=== PATIENT | male | born 1980 | race Caucasian/White ===

== ENCOUNTER 2017-03-29 11:37 | Emergency (ER) | payer SELFPAY ==
[~2017-03-29] VITALS: Ht 177.8 cm; Wt 64.8 kg
[~2017-03-29 11:37] MED LIST: IMIQ1CRE5 TOP
[2017-03-29 11:39] VITALS: BP 134/81; PULSE 88; TEMP 36.5; O2SAT 99; Ht 177.8 cm; Wt 64.8 kg
[2017-03-29] MEDS ORDERED: DIPHTHERIA/TETANUS/PERTUSSIS 0.5 ML SYR/VIAL IM. ONE (13:00)
--- NOTE | 2017-03-29 13:17 | EMERGENCY ROOM VISIT NOTE ---
ED Visit Note First contact with patient: 11:59 CHIEF COMPLAINT: Eye pain and facial lacerations or HISTORY OF PRESENT ILLNESS: This 36-year-old male patient presents to the emergency department by private vehicle complaining of pain in the right eye and face. Patient states he was cutting down tree limbs and his friend's backyard, when one of the tree limb struck him on the right side of his face. He states the limb was approximately 3 inches in diameter. He denies loss of consciousness, headache, neck pain. He does have a laceration of his right forehead and right upper lip, and swelling/bruising around his right eye. There has been a constant mild pain and irritation, redness and tearing in the eye. There is a mild blurring of vision at times and light bothers the eye. The vision has not been decreased over all. The patient does not wear contacts. The patient rates the pain as burning and to/10. The patient has not had previous injuries to this eye. Tetanus shot is not up to date. REVIEW OF SYSTEMS: A 6 system review of systems was completed with positives and pertinent negatives listed in the HPI. ALLERGIES: No known allergies MEDICATIONS: Patient denies any prescription medications PMH: No significant past medical history SOCIAL HISTORY: Patient lives at home. He is a 2 pack per day smoker, he denies alcohol and recreational drug use. PHYSICAL EXAM: Vital Signs: Reviewed Nurse's notes, vital signs stable. Visual acuity left eye 20/30, right eye 20/70. GENERAL: This is a pleasant gentleman, in no acute distress, but who is uncomfortable from the eye problem. Well- developed well-nourished. EYES: The left pupil is 3 mm, round, briskly reactive to light. The right pupil is 3 mm, irregular and oval-shaped, and minimally reactive to light and accommodation. EOMs intact. There is discharge of clear tears from the right eye which is injected. There is no foreign body visible under the eyelid even after lid eversion. No foreign body was seen embedded in the cornea under slit lamp exam. There is a hyphema seen in the right eye, approximately 20%. Fluorescein staining was performed and the eye was examined under slit lamp, no fluorescein uptake was observed with ultraviolet light significant for a corneal abrasion or deeper corneal laceration. SKIN: There is a 1 cm long laceration noted on the right upper lip. It does not go through the vermilion border and it is not through and through to the oral mucosa. It is superficial and the edges do not gape apart with traction. There is no foreign material in the wound and it looks clean. There is no active bleeding. No deep structures such as tendons or nerves are seen in the base of the wound. There is a 1 cm long laceration noted to the right forehead, full-thickness and the edges do gape apart with traction. There is no foreign material in the wound and it looks clean. There is mild bleeding actively. No deep structures such as tendons or nerves are seen in the base of the wound, the galea appears to be intact with no exposed skull. EMERGENCY DEPARTMENT COURSE: I examined the patient. Differential diagnosis includes corneal abrasion, corneal foreign body, open globe, facial laceration, contusion, abrasion, among others. The patient was offered medication for pain , he declines this. A slit lamp exam was performed as above, there was no fluorescein uptake to indicate a corneal abrasion or laceration concerning for an open globe injury, however the presence of hyphema with poorly reactive pupil was concerning, therefore ophthalmology was consulted. I did speak on the phone with Dr Wu, who agreed that this was most likely not an open globe fracture, and he stated that he is happy to see the patient for follow-up in his clinic this afternoon. Verbal consent was obtained to perform the laceration repair procedure. The laceration on the right forehead was cleaned with betadine and sterile saline and there was no bleeding. The patient was offered local anesthetic, he declined this and stated "just get it over with." A single subcuticular suture was placed with 5-0 Vicryl suture, with good hemostasis and wound edge approximation. The edges of the laceration were further approximated and secured with 3 layers of Dermabond glue with good wound approximation. The patient tolerated the procedure well. The patient was given a tetanus booster. The patient was discharged in stable condition, with instructions to follow up with ophthalmology this afternoon. The patient was discussed, seen and evaluated by Dr. Griffin, who agrees with my assessment and plan. Current/Historical Medications No Active Prescriptions or Reported Meds Allergies Coded Allergies: No Known Allergies (Verified , 03/29/17) Uncoded Allergies: NKDA (Allergy, Unknown, 08/14/02) Vital Signs Date Time Temp Pulse Resp B/P (MAP) Pulse Ox O2 Delivery O2 Flow Rate FiO2 03/29/17 11:39 36.5 88 18 134/81 99 Room Air Medications Administered Medications (Trade) Dose Ordered Sig/Maria Victoria Route Start Time Stop Time Status Last Admin Dose Admin Diphtheria/ Pertussis/Tetanus Vacc (Adacel Inj) 0.5 ml ONCE ONCE IM. 03/29/17 13:00 03/29/17 13:01 DC 03/29/17 13:12 0.5 ML Departure Information Impression Primary Impression: Hyphema, right eye Additional Impression: Facial laceration Dispostion Home / Self-Care Condition GOOD Prescriptions No Active Prescriptions or Reported Meds Referrals No Doctor, Assigned (PCP) Thomas Wu M.D. Patient Instructions ED Eye Injury Hyphema, ED Laceration Facial Skin Glue, [facility] Additional Instructions Follow-up this afternoon with Dr. Wu at the ophthalmology clinic. Call ahead to establish an appointment time. They are expecting to hear from you. Your visual acuity in the ED was left eye 20/30, right eye 20/70. Please share this information with your cvicu nurse at your visit. Skin glue on your facial laceration should follow off on its own in the next 5- 7 days. Do not scrub the wound or apply any soaps or ointment to the glued area , as this can cause the glue to dissolve and follow-up early. Keep your other wounds clean and dry. Do not allow any crusting or dried blood to accumulate on sutures. If this occurs, use a 1:1 solution of hydrogen peroxide/water on a Q-tip to clean the wound. Use an antibiotic ointment to the abrasion above your lip for 3-4 days, then let wound dry. Ice and elevate for swelling and pain. Ibuprofen 600 mg and Tylenol 1000 mg every 6-8 hrs as needed for pain. Do not take more than 3000 mg of Tylenol or 2400 mg of ibuprofen in 24 hours. Keep covered when in sun until sutures removed then SPF 50 or higher for one year. Vitamin E oil if desired two weeks after suture removal for reduction of scar. Please seek immediate medical attention for any signs of infection (increasing redness, swelling, pus drainage, streaking up the arm, fever/chills). Problem Qualifiers Additional Impression: Facial laceration Encounter type: initial encounter Qualified Codes: S01.81XA - Laceration without foreign body of other part of head, initial encounter
== END 2017-03-29 13:30 | disposition home or self-care (01) ==
LOC: C.EDB 11:38 → C.EDD 13:30
DX: S05.11XA Contusion of eyeball and orbital tissues, right eye, initial encounter (principal); S01.81XA Laceration without foreign body of other part of head, initial encounter; S01.511A Laceration without foreign body of lip, initial encounter; Z23 Encounter for immunization; W20.8XXA Other cause of strike by thrown, projected or falling object, initial encounter; F17.200 Nicotine dependence, unspecified, uncomplicated

== ENCOUNTER 2020-06-26 13:55 | Observation (INO) ==
--- OUTSIDE RECORDS SUMMARY | 2020-06-26 13:57 | External Medical Summary | Continuity of Care Document ---
:1980 Author Name Zoe Powell, Provider Address Unavailable Unavailable , Care Team Providers Name Role Phone Armond Armenta M.D., I. Unavailable [email or web address], NO Unavailable Unavailable Unavailable Unavailable Unavailable Problems Condyloma acuminatum (078.11) (A63.0) Allergies and Adverse Reactions No Known Drug Allergies (Allergy) Medications No Reported Medications Refills: 0 Procedures Procedures not documented Immunizations Immunizations not documented Social History - Smoking Status Smokes tobacco daily Plan of Treatment Planned Observations Planned Goals not documented Results No Known Results Results not documented Encounters Appointment; Armond Armenta M.D. 22-Aug-2016 10:15 Encounter Diagnosis: Problem not documented
--- OUTSIDE RECORDS SUMMARY | 2020-06-26 13:58 | External Medical Summary | Continuity of Care Document ---
:1980 Author Name Zoe Powell, Provider Address Unavailable Unavailable , Care Team Providers Name Role Phone Armond Armenta M.D., I. Unavailable [email or web address] [email or web address], NO Unavailable Unavailable Unavailable Unavailable [...]
[2020-06-26] MEDS ORDERED: KETOROLAC TROMETHAMINE 15 MG/ML VIAL IV STA (14:47)
[2020-06-26] MEDS ORDERED: SODIUM CHLORIDE 0.9% 1000ML 1,000 ML IV ONE (14:47)
--- NOTE | 2020-06-26 15:09 | Emergency Department Note ---
Impression & Plan Abscess of buttock, right, Acute left flank pain, Cough, Left rib fracture ED Provider Note Provider: Dilsahd Hussein MD DATE OF SERVICE:06/26/2020 CHIEF COMPLAINT: Abscess, flank pain HISTORY OF PRESENT ILLNESS: Patient is a 39-year-old gentleman distant history of IV drug abuse recently injecting steroids in his right buttock presenting today complaining of an abscess on his right buttock as well as developing overnight some left flank pain. Patient states he lifts weights frequently and about 2 weeks ago he injected steroids in his right butt cheek. States it began to feel a bit irritated and painful and began to swell. This led him on 2 days ago to present to [facility] for evaluation and imaging there showed a large 10 cm fluid collection of the right buttock. Patient states he was going to be transferred to [place] but due to bed availability he stayed for most of at the ER in [place]. Patient states he got frustrated and left AMA yesterday evening. Went home use marijuana last night. States this caused him to cough little bit any cough throughout the night. Patient complained of onset of some left flank pain at this point but denies anterior chest pain. Does not state that he is not short of breath but states if he takes deep breath he cannot because it hurts in his left flank. Denies nausea vomiting or abdominal pain. Denies stooling issues. Denies pain down his legs or numbness or tingling in the lower extremities. Patient denies trauma. He denies fever that he is aware of but the pain in his flank is hurting. Patient states he does have a history of IV drug abuse several years ago. Evidently there was significant difficulty obtaining IV access at the other facility and he does not believe he received antibiotics. Does not currently have a primary doctor. Patient denies a history of surgical drainage of abscesses. History of MRSA reported. Denies nausea or vomiting. REVIEW OF SYSTEMS: A total of 10 review of systems was obtained and negative except as stated above in the HPI. PAST MEDICAL HISTORY: As noted above MEDICATIONS: Denies current prescribed medications. SOCIAL HISTORY: Smoker, uses marijuana PHYSICAL EXAM: GENERAL: alert and oriented standing in room appears uncomfortable pacing Head: normocephalic and atraumatic EYES: No injection, discharge or icterus. NECK: Trachea midline. ENT: Mucous membranes pink and moist. LUNGS: Airway patent. No retractions. Breath sounds clear HEART: Regular rate and rhythm. No chest wall tenderness ABDOMEN: Soft and non-tender, without guarding or rebound. BACK: No midline tenderness, no SI joint tenderness. No bilateral flank tenderness even over reported area left flank pain. SKIN: Acyanotic, warm, dry. There is some scattered folliculitis spots over his back as well as what appear to be prior scarring from small follicular abscesses here. Patient has a large 12 x 14 cm area of firmness over the right buttock predominantly superior lateral without crepitus and without significant overlying erythema. Does have tenderness in this area. EXTREMITIES: Without swelling, tenderness or deformity NEUROLOGICAL: No focal deficits. No aphasia. No facial droop or slurred speech. Normal strength and tone in the extremities. Sensation to gross touch normal. Ambulatory. EKG: Sinus tachycardia 107 bpm. No PVC or PAC. No acute ST segment elevation or depression noted. Rightward axis is noted. Compared to previous film from October [id number] doubt more tachycardic with right axis CONTINUOUS CARDIAC MONITORING: was ordered and showed a heart rate of 100's to 80's bpm in initially sinus tachycardia then normal sinus rhythm PDMP was checked without noted issue. Patient's laboratory studies and imaging reviewed. Differential includes Appendicitis, infections, diverticulitis, UTI, obstruction, mesenteric ischemia, aortic pathology, inflammatory bowel disease, renal colic, PUD, pancreatitis, biliary pathology, hernia, volvulus, constipation, abscess, PE, ACS, rib fracture, pleurisy, musculoskeletal flank pain as well as other pathologies. IMPRESSION/MEDICAL DECISION MAKING: Patient presents with 2 primary complaints. Has a very obvious right buttock collection on exam but no clear head or significant erythema or crepitus appreciated here. Patient is tachycardic but not febrile upon arrival. Is in significant discomfort from this and flank pain. Reviewed imaging from outside facility and given its been almost [address] was obtained of the abdomen pelvis to evaluate for change of this large what appears to be abscess. Patient not having bowel or bladder dysfunction he reports. Not having numbness or weakness in lower extremities. Doubt spinal cord impingement at this point. Given the significant size likely will need IV antibiotics and surgical consultation. Completion of left flank pain is of unclear etiology. Does complain bit of a cough and while no significant trauma is been reported wonder if the coughing is causing some musculoskeletal or possible bony injury here. CT of the chest were completed evaluate for this as well as possible underlying pneumonia, pulmonary embolism, or other pathology here. Seems less likely to be nephrolithiasis. Benign anterior abdomen otherwise and doubt significant intra-abdominal complication such as peritonitis, perforation, or diverticulitis. Labs to evaluate for possible pancreatitis were sent but patient denies nausea or vomiting and this seems somewhat atypical for this presentation. Laboratory studies do returned with a significant leukocytosis of 18 with borderline anemia. Sodium 130. No other significant electrolyte abnormality. Renal function 1.18. EKG without significant ischemic findings. Mild transa minitis of 87/85 noted with a negative troponin. Does not think is a with hepatitis. Doubt this is ACS given these findings. Lipase is low at 41 and I doubt pancreatitis. Unclear etiology of the AST ALT elevation but minimal. Bilirubins not elevated doubt obstructive pathology with this. Covid test here was negative. Given his tachycardia large apparent abscess and leukocytosis empirically given a dose of Zosyn and daptomycin discussed with pharmacy for broad-spectrum coverage including MRSA coverage. CT scan of the chest and abdomen pelvis shows no evidence of PE likely likely his symptoms are related to a left night rib fracture. Given that he denies trauma this could very well be from a significant cough. CT abdomen pelvis shows an 11 x 6.1 cm rim-enhancing fluid collection suggestive of an abscess with some smaller ring-enhancing fluid collections nearby in the gluteus gerald. Given the significant size of this as well as leukocytosis discussed with general surgery. Dr. Orlando came and evaluated the patient to the emergency department took the ER for further care. DIAGNOSIS: Right buttock abscess, left flank pain, left posterior ninth rib fracture DISPOSITION: Taken to the OR by surgery for further care. Past Med/Surg History Social History Smoking Status: Current every day smoker Hx Substance Use: Yes Feels Safe at Home: Yes Allergies Allergies Allergy/AdvReac Type Severity Reaction Status Date / Time No Known Allergies Allergy Verified 06/26/20 15:28 [id number] Allergy Unknown Unknown Uncoded 06/26/20 15:28 Home Meds Home Medications Medication Instructions Recorded Confirmed No Known Home Medications 06/26/20 06/26/20 Results & Data (ED) Vital Signs Vital Signs - 24 hr 06/26/20 13:59 06/26/20 14:25 06/26/20 16:00 Temperature 37.4 C Temperature Source Oral Pulse Rate 128 H Pulse Rate [Apical] 85 Respiratory Rate 20 18 Respiratory Depth Normal Blood Pressure 108/54 L Blood Pressure [Left Arm] 128/77 Blood Pressure Mean 72 Blood Pressure Mean [Left Arm] 94 Pulse Oximetry 99 98 Oxygen Delivery Method Room Air Sepsis Recent Fever Within 48 Hours No Sepsis New/Unexplained Change in Mental Status N/A Sepsis Action Taken by Nursing No Action Required Laboratory Data Result diagrams: 06/26/20 15:06 06/26/20 15:06 Lab Results 06/26/20 06/26/20 06/26/20 Range/Units 15:06 15:06 15:06 WBC 18.81 H (4.8-10.8) K/uL RBC 5.05 (4.7-6.1) M/uL Hgb 13.4 L (14.0-18.0) g/dL POC Hgb (14.0-18.0) g/dl Hct 38.8 L (42-52) % POC Hct (42-52) % MCV 76.8 L (80-100) fL MCH 26.5 (25-34) pg MCHC 34.5 (32-36) g/dL RDW Std Deviation 44.7 (36.4-46.3) fL RDW Coeff of Matthew 16.1 H (11.5-14.5) % Plt Count 572 H (130-400) K/uL MPV 10.0 (7.4-10.4) fL Neutrophils % (Manual) 67.5 % Lymphocytes % (Manual) 11.4 % Monocytes % (Manual) 7.9 % Eosinophils % (Manual) 0.9 % Metamyelocytes % (Man) 7.9 % Myelocytes % (Man) 4.4 % Neutrophils # (Manual) 12.70 H (1.4-6.5) K/uL Total Absolute Neuts 12.70 H (1.4-6.5) K/uL Lymphocytes # (Manual) 2.14 (1.2-3.4) K/uL Total Abs Lymphocytes 2.14 (1.2-3.4) K/uL Monocytes # (Manual) 1.49 H (0.11-0.59) K/uL Eosinophils # (Manual) 0.17 (0-0.5) K/uL Metamyelocytes # (Man) 1.49 H (0-0) K/uL Myelocytes # (Manual) 0.83 H (0-0) K/uL Giant Platelets 1+ Hypochromasia Present POC Sodium (135-144) mmol/L Sodium 130 L (136-145) mmol/L POC Potassium (3.3-5.0) mmol/L Potassium 4.2 (3.5-5.1) mmol/L POC Chloride (101-112) mmol/L Chloride 98 (98-107) mmol/L Carbon Dioxide 27 (21-32) mmol/L POC Total CO2 (24-31) mmol/L Anion Gap 5.0 (3-11) POC Anion Gap (16-25) mmol/L POC BUN (7-18) mg/dl BUN 15 (7-18) mg/dl Creatinine 1.18 (0.6-1.4) mg/dl POC Creatinine (0.6-1.3) mg/dl Est Cr Clr Drug Dosing 87.6 ml/min Est GFR ( Amer) 90.2 Est GFR (Non-Af Amer) 77.8 BUN/Creatinine Ratio 12.5 (10-20) Glucose 103 H (70-99) mg/dl POC Glucose (other) (70-99) mg/dl Lactate 1.1 (0.4-2.0) mmol/L Calcium 8.7 (8.5-10.1) mg/dl POC Ioniz Calcium [place] (1.12-1.32) mmol/l Magnesium 2.2 (1.8-2.4) mg/dl Total Bilirubin 0.5 (0.2-1) mg/dl AST 87 H (15-37) U/L ALT 85 H (12-78) U/L Alkaline Phosphatase 100 (45-117) U/L Troponin I < 0.015 (0-0.045) ng/ml Total Protein 7.4 (6.4-8.2) gm/dl Albumin 2.9 L (3.4-5.0) gm/dl Globulin 4.5 H (2.5-4.0) gm/dl Albumin/Globulin Ratio 0.6 L (0.9-2) Lipase 41 L (73-393) U/L COVID-19 Eval Order SARS-CoV-2, RNA, NAAT (NEGATIVE) 06/26/20 06/26/20 06/26/20 Range/Units 15:22 15:30 15:30 WBC (4.8-10.8) K/uL RBC (4.7-6.1) M/uL Hgb (14.0-18.0) g/dL POC Hgb 14.3 (14.0-18.0) g/dl Hct (42-52) % POC Hct 42 (42-52) % MCV (80-100) fL MCH (25-34) pg MCHC (32-36) g/dL RDW Std Deviation (36.4-46.3) fL RDW Coeff of Matthew (11.5-14.5) % Plt Count (130-400) K/uL MPV (7.4-10.4) fL Neutrophils % (Manual) % Lymphocytes % (Manual) % Monocytes % (Manual) % Eosinophils % (Manual) % Metamyelocytes % (Man) % Myelocytes % (Man) % Neutrophils # (Manual) (1.4-6.5) K/uL Total Absolute Neuts (1.4-6.5) K/uL Lymphocytes # (Manual) (1.2-3.4) K/uL Total Abs Lymphocytes (1.2-3.4) K/uL Monocytes # (Manual) (0.11-0.59) K/uL Eosinophils # (Manual) (0-0.5) K/uL Metamyelocytes # (Man) (0-0) K/uL Myelocytes # (Manual) (0-0) K/uL Giant Platelets Hypochromasia POC Sodium 132 L (135-144) mmol/L Sodium (136-145) mmol/L POC Potassium 4.2 (3.3-5.0) mmol/L Potassium (3.5-5.1) mmol/L POC Chloride 95 L (101-112) mmol/L Chloride (98-107) mmol/L Carbon Dioxide (21-32) mmol/L POC Total CO2 26 (24-31) mmol/L Anion Gap (3-11) POC Anion Gap 15.0 L (16-25) mmol/L POC BUN 16 (7-18) mg/dl BUN (7-18) mg/dl Creatinine (0.6-1.4) mg/dl POC Creatinine 1.2 (0.6-1.3) mg/dl Est Cr Clr Drug Dosing ml/min Est GFR ( Amer) Est GFR (Non-Af Amer) BUN/Creatinine Ratio (10-20) Glucose (70-99) mg/dl POC Glucose (other) 104 H (70-99) mg/dl Lactate (0.4-2.0) mmol/L Calcium (8.5-10.1) mg/dl POC Ioniz Calcium [place] 1.19 (1.12-1.32) mmol/l Magnesium (1.8-2.4) mg/dl Total Bilirubin (0.2-1) mg/dl AST (15-37) U/L ALT (12-78) U/L Alkaline Phosphatase (45-117) U/L Troponin I (0-0.045) ng/ml Total Protein (6.4-8.2) gm/dl Albumin (3.4-5.0) gm/dl Globulin (2.5-4.0) gm/dl Albumin/Globulin Ratio (0.9-2) Lipase (73-393) U/L COVID-19 Eval [facility] SARS-CoV-2, RNA, NAAT NEGATIVE (NEGATIVE) Administered Medications Discontinued Medications Sodium Chloride (Nss 1000ml) 1,000 mls @ 999 mls/hr IV .Q1H1M ONE Stop: 06/26/20 15:47 Last Infusion: 06/26/20 16:14 Dose: 0 mls/hr Documented by: [id number] Admin: 06/26/20 15:11 Dose: 999 mls/hr Documented by: [id number] Daptomycin 450 mg/ Syringe 9 mls @ 4.5 mls/min IV NOW ONE; Protocol Stop: 06/26/20 15:46 Last Admin: 06/26/20 15:56 Dose: 4.5 mls/min Documented by: [id number] Piperacillin Sod/Tazobactam Sod (Zosyn) 4.5 gm in 120 mls @ 240 mls/hr IV NOW ONE Stop: 06/26/20 16:07 Last Infusion: 06/26/20 16:56 Dose: 0 mls/hr Documented by: [id number] Admin: 12/26/20 15:56 Dose: 240 mls/hr Documented by: [id number] Ioversol (Optiray 320 125ml) 120 ml IV ONCE ONE Stop: 06/26/20 16:03 Last Admin: 06/26/20 16:02 Dose: 120 ml Documented by: [id number] Ketorolac Tromethamine (Ketorolac Tromethamine 15 Mg/Ml Vial) 15 mg IV NOW STA Stop: 06/26/20 14:48 Last Admin: 06/26/20 15:11 Dose: 15 mg Documented by: [id number] Discharge Plan Visit Data Chief Complaint: Rectal Pain Stated Complaint: RECTAL ABSCESS NEEDS DRAINED ED Provider: Dilshad Hussein Discharge Problem: Abscess of buttock, right, Acute left flank pain, Cough, Left rib fracture Patient Disposition: Being Evaluated by Surgeon Discharge Instructions Interventions: ED Discharge Assessment Last Done: 06/26/20 17:41 Discharge Problem: Left rib fracture Qualifiers: Encounter type: initial encounter Rib fracture type: single rib Fracture type: closed Qualified Code(s): S22.32XA - Fracture of one rib, left side, initial encounter for closed fracture
[2020-06-26 15:23] LABS: Hematocrit (blood only) 38.8 % (42-52); Hemoglobin 13.4 g/dL (14.0-18.0); Mean Corpuscular Hemoglobin 26.5 pg (25-34); Mean Corpuscular Hgb Conc 34.5 g/dL (32-36); Mean Corpuscular Volume 76.8 fL (80-100); Platelet Count 572 K/uL (130-400); RDW Coefficient of Variation 16.1 % (11.5-14.5); RDW Standard Deviation 44.7 fL (36.4-46.3); Red Blood Count 5.05 M/uL (4.7-6.1); White Blood Count 18.81 K/uL (4.8-10.8)
[2020-06-26 15:34] LABS: iSTAT Creatinine 1.2 mg/dl (0.6-1.3); iSTAT Hemoglobin 14.3 g/dl (14.0-18.0); iSTAT Ionized Calcium 1.19 mmol/l (1.12-1.32); iSTAT Potassium 4.2 mmol/L (3.3-5.0)
[2020-06-26] MEDS ORDERED: PIPERACILLIN/TAZOBACTAM 4.5 GM/120 ML BAG IV ONE (15:38)
[2020-06-26] MEDS ORDERED: PIPERACILL/TAZOBAC CONSULT ACTIVE PRN ×2 (15:38→17:44)
[2020-06-26] MEDS ORDERED: DAPTOmycin 450 MG in SYRINGE 0 ML IV ONE (15:45)
[2020-06-26 15:46] LABS: Alanine Aminotransferase 85 U/L (12-78); Albumin Level 2.9 gm/dl (3.4-5.0); Aspartate Aminotransferase 87 U/L (15-37); BUN Creatinine Ratio 12.5 (10-20); Blood Urea Nitrogen 15 mg/dl (7-18); Calcium 8.7 mg/dl (8.5-10.1); Carbon Dioxide 27 mmol/L (21-32); Chloride 98 mmol/L (98-107); Creatinine Clr Calc Pharmacy 87.6 ml/min; Est GFR (African American) 90.2; Est GFR (Non-African American) 77.8; Glucose 103 mg/dl (70-99); Lipase 41 U/L (73-393); Magnesium 2.2 mg/dl (1.8-2.4); Potassium 4.2 mmol/L (3.5-5.1); Sodium 130 mmol/L (136-145)
[2020-06-26 15:51] LABS: ALC (manual) 2.14 K/uL (1.2-3.4); Albumin Globulin Ratio 0.6 (0.9-2); Alkaline Phosphatase 100 U/L (45-117); Bilirubin,Total 0.5 mg/dl (0.2-1); Eosinophils # (manual) 0.17 K/uL (0-0.5); Eosinophils % (manual) 0.9 %; Giant Platelets 1+; Globulin 4.5 gm/dl (2.5-4.0); Hypochromasia Present; Lymphocytes # (manual) 2.14 K/uL (1.2-3.4); Lymphocytes % (manual) 11.4 %; Metamyelocytes # (manual) 1.49 K/uL (0-0); Metamyelocytes % (manual) 7.9 %; Monocytes # (manual) 1.49 K/uL (0.11-0.59); Monocytes % (manual) 7.9 %; Myelocytes # (manual) 0.83 K/uL (0-0); Myelocytes % (manual) 4.4 %; Neutrophils % (manual) 67.5 %; Total Protein 7.4 gm/dl (6.4-8.2); Troponin I < 0.015 ng/ml (0-0.045)
[2020-06-26] MEDS ORDERED: OPTIRAY 320 125ml IV ONE (16:02)
--- NOTE | 2020-06-26 16:22 | CT Scan Report ---
CT ANGIOGRAPHY OF THE CHEST, PULMONARY EMBOLUS PROTOCOL CLINICAL HISTORY: PE, L flank pain, cough COMPARISON STUDY: Chest radiograph October 26, 2015. TECHNIQUE: Following IV administration of 120 mL of Optiray-320, helical axial images of the chest we re obtained utilizing the pulmonary embolus protocol. Maximal intensity projections and sagittal and coronal reformats were viewed on an independent 3D workstation. IV contrast was administered withou t complication. Automated exposure control was utilized for the study. A dose lowering technique wa s utilized adhering to the principles of ALARA. FINDINGS: No pulmonary emboli are identified. There is no thoracic aortic dissection. 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 The size of the heart is normal. There is no perica rdial effusion. No enlarged thoracic lymph nodes are present. No pneumothorax or pleural effusion is noted. Note is made of an acute appearing nondisplaced fracture the posterior lateral left ninth rib. Mild to moderate upper lobe predominant emphysema is present. Subpleural opacities favor atelectasis . There is no consolidation. The abdomen and pelvis will be reported separately. IMPRESSION: 1. No pulmonary emboli identified. 2. Acute appearing nondisplaced fracture of the posterior lateral left ninth rib. No pneumothorax. 3. Mild to moderate upper lobe predominant emphysema. ACT 112: Negative or not required by law. Electronically signed by: Tab Harley M.D. 06/26/2020 4:21 PM
--- NOTE | 2020-06-26 16:46 | CT Scan Report ---
CT OF THE ABDOMEN AND PELVIS WITH CONTRAST CLINICAL HISTORY: R buttock abscess, L flank pain COMPARISON STUDY: None. TECHNIQUE: Following IV administration of 120 mL of Optiray-320, axial images of the abdomen and pelv is were obtained from the lung bases to the proximal femurs. Images were reviewed in the axial, sagit scot, and coronal planes. IV contrast was administered without complication. Automated exposure contr ol was utilized for the study. A dose lowering technique was utilized adhering to the principles of ALARA. CT DOSE: 755.60 mGy.cm FINDINGS: Please note that the chest CT will be reported separately. No pneumatosis, free air or port al venous gas is present. Evaluation of the abdomen and pelvis is difficult given a paucity of fat. T he liver, spleen, adrenal glands, kidneys and pancreas are unremarkable. There is no biliary or pancr eatic ductal dilatation. There is no evidence for a bowel obstruction. The caliber and wall thickness of small and large bowel are grossly normal. No acute lumbar spine or pelvic fracture is identified. Note is made of a large right gluteal fluid collection that measures 11 x 6.1 cm. This has periphera l enhancement. This extends into the right gluteus gerald. A few adjacent fluid collections within t he right gluteus gerald measure up to 3.5 x 1.5 cm. IMPRESSION: 1. 11 x 6.1 cm rim-enhancing right gluteal fluid collection which extends into the right gluteus maxi mus. This suggests an abscess. A few adjacent smaller rim-enhancing fluid collections within the righ t gluteus gerald also suggest abscesses which may communicate with the larger collection. 2. No acute intra-abdominal process although evaluation is difficult given paucity of intra-abdominal fat. No bowel obstruction. ACT 112: Negative or not required by law. Electronically signed by: Tab Harley M.D. 06/26/2020 4:45 PM
--- NOTE | 2020-06-26 17:18 | Anesthesiology Consultation ---
Date of Service June 26, 2020 Assessment & Plan Chart Review Chart Review: Acceptable Risk for Surgery and Patient NOT seen in Pre Admission Testing Consults Requested none ASA ASA2E Proposed Anesthesia Anesthesia Type: General History Height/Weight Height: 5 ft 10 in Weight: 78.7 kg Allergies Allergy/AdvReac Type Severity Reaction Status Date / Time No Known Allergies Allergy Verified 06/26/20 15:28 [id number] Allergy Unknown Unknown Uncoded 06/26/20 15:28 Medications Home Medications Medication Instructions Recorded Confirmed Last Taken No Known Home Medications 06/26/20 06/26/20 Unknown Exercise / Class Metabolic Activity II 4-5 Yardwork/Stairs/Walk up hill Past Anesthesia History No Hx of Anesthesia Complications and No Family Hx of Anesthesia Complications History of PONV No Hx of PONV and No Hx of Motion Sickness Social History Smoking Status: Current every day smoker Hx Substance Use: Yes substance use type: marijuana Physical Exam Vital Signs Last Vital Signs Temp 37.4 C 06/26/20 14:25 Pulse 85 06/26/20 16:00 Resp 18 06/26/20 16:00 BP 128/77 06/26/20 16:00 Pulse Ox 98 06/26/20 16:00 Testing Laboratory Results 06/26/20 15:06 06/26/20 15:06 06/26/20 15:22 POC Glucose (other) 104 H
[2020-06-26] MEDS ORDERED: ONDANSETRON INJ 2 MG/ML 2 ML VIAL ONE (17:21)
[2020-06-26] MEDS ORDERED: fentaNYL citrate 100 MCG/2 ML VIAL ONE ×2 (17:21→18:44)
[2020-06-26] MEDS ORDERED: MIDAZOLAM HCL 1 MG/ML 2ML VIAL ONE (17:21)
[2020-06-26] MEDS ORDERED: DEXAMETHASONE SOD INJ 4 MG/ML VIAL ONE (17:21)
[2020-06-26] MEDS ORDERED: PROPOFOL IV EMULSION 10 MG/ML 20 ML VIAL IV ONE (17:21)
[2020-06-26] MEDS ORDERED: SUCCINYLCHOLINE CHLORIDE 20 MG/ML 10 ML VIAL IV ONE (17:21)
[2020-06-26] MEDS ORDERED: LIDOCAINE HCL 2% 2 ML VIAL/AMP(20MG/ML) INFIL ONE (17:21)
[2020-06-26] MEDS ORDERED: ROCURONIUM BROMIDE 10 MG/ML 5 ML VIAL IV ONE (17:26)
--- NOTE | 2020-06-26 17:42 | History & Physical Report ---
Date of Service June 26, 2020 Assessment & Plan (1) Abscess of buttock, right: -Admit to surgical service -Keep NPO -Zosyn in ER -To OR tonight for Incision and drainage of right gluteal abscess -Consent obtained, risks discussed including bleeding, infection, non-healing wound History of Present Illness Chief Complaint: Right buttock pain Primary Care Provider: NO PCP This is an otherwise healthy 39 yo male who presents with right buttock pain x 1 week. He states he was injecting steroids into the area one week ago and then slowly developed swelling and sharp right buttock pain that worsened each day. No relieving factors. No fevers or chills. No N/V. No drainage. Allergies Allergy/AdvReac Type Severity Reaction Status Date / Time No Known Allergies Allergy Verified 06/26/20 15:28 [id number] Allergy Unknown Unknown Uncoded 06/26/20 15:28 Home Medications Medication Instructions Recorded Confirmed Type No Known Home Medications 06/26/20 06/26/20 History Past Med/Surg History Social History Smoking Status: Current every day smoker Hx Substance Use: Yes Feels Safe at Home: Yes Review of Systems Constitutional: no fever and no chills Eyes: no worsening vision Ear, Nose, Mouth, Throat: no ear pain and no ear discharge Respiratory: no cough, no chest congestion and no dyspnea Cardiovascular: no chest pain, no chest pain at rest and no dyspnea Gastrointestinal: no abdominal pain, no nausea and no vomiting Genitourinary: no dysuria Musculoskeletal: no back pain and no neck pain Integumentary: + erythema; no rash Neurologic: no falls Psychiatric: no behavioral changes and no depression Endocrine: no fatigue and no change in body appearance Hematologic / Lymphatic: no easy bleeding and no easy bruising Physical Exam Constitutional: WD/WN, vitals as above Eyes: PERRL, conjunctivae normal, anicteric sclerae ENMT: external ear and nose normal, oropharynx normal Neck: trachea midline, no thyromegaly Respiratory: normal respiratory effort, lungs clear to auscultation Cardiovascular: RRR, no murmur, no edema Gastrointestinal (Abdomen): Inspection/Auscultation: abdomen normal to inspection; abdomen not distended Percussion/Palpation: abdomen soft; abdomen nontender and no guarding Musculoskeletal: no cyanosis or clubbing, extremities motor strength 5/5 Skin: no rashes, warm and dry +Large right buttock fluctuance, TTP, warm to touch, +erythema, no drainage Neurologic: PERRL, EOMI, accommodation nl, no face palsy, no dysarthria Psychiatric: A+Ox3, euthymic affect Lymphatic: no inguinal lymphadenopathy Results & Data Results & Data ([facility]) Vital Signs (Past 12 Hours) Vital Signs Temp Pulse Pulse Resp BP BP Pulse Ox 06/26/20 16:00 85 18 128/77 98 06/26/20 14:25 37.4 C 06/26/20 13:59 128 H 20 108/[address] A/P IMPRESSION: 1. 11 x 6.1 cm rim-enhancing right gluteal fluid collection which extends into the right gluteus gerald. This suggests an abscess. A few adjacent smaller rim- enhancing fluid collections within the right gluteus gerald also suggest abscesses which may communicate with the larger collection. 2. No acute intra-abdominal process although evaluation is difficult given paucity of intra-abdominal fat. No bowel obstruction. PG Care Time/CCT Total # of Minutes Spent Total Time Spent with Patient: Total time spent is greater than 50% in coordination of care (as documented) at patient's floor/unit and/or counseling patient: Coding Level of Care Code 22445 Initial Inpt Care Lvl 3 Diagnoses Abscess of buttock, right L02.31
[2020-06-26] MEDS ORDERED: ATROPINE SULFATE 0.1 MG/ML 10ML SYR IV PRN (17:43)
[2020-06-26] MEDS ORDERED: fentaNYL citrate 100 MCG/2 ML VIAL IV PRN (17:43)
[2020-06-26] MEDS ORDERED: LABETALOL HCL IV 5 MG/ML 20ML IV PRN (17:43)
[2020-06-26] MEDS ORDERED: PROMETHAZINE HCL 12.5 MG in SODIUM CHLORIDE 0.9% 50 ML IV PRN (17:43)
[2020-06-26] MEDS ORDERED: FLUMAZENIL 0.1 MG/1 ML 10 ML VIAL IV PRN (17:43)
[2020-06-26] MEDS ORDERED: HYDROmorphone INJ 1 MG/ML SYRINGE IV PRN (17:43)
[2020-06-26] MEDS ORDERED: NALOXONE HCL 0.4 MG/1 ML VIAL/CARP IV PRN (17:43)
[2020-06-26] MEDS ORDERED: ONDANSETRON INJ 2 MG/ML 2 ML VIAL IV PRN ×2 (17:43→17:44)
[2020-06-26] MEDS ORDERED: ePHEDrine sulfate 50 MG/ML AMP IV PRN (17:43)
[2020-06-26] MEDS ORDERED: oxyCODONE HCL IR 5 MG TAB (IMMEDIATE RELEASE) PO PRN (17:44)
[2020-06-26] MEDS ORDERED: IBUPROFEN 200 MG TAB PO PRN (17:44)
[2020-06-26] MEDS ORDERED: ACETAMINOPHEN 500 MG TAB PO PRN (17:44)
[2020-06-26] MEDS ORDERED: BUPIVACAINE 0.5 % 5 MG/1 ML MPF 30ML VIAL ONE (18:16)
--- NOTE | 2020-06-26 18:59 | Post Operative Brief Note ---
PG Immediate Post Op with CF Date of Surgery June 26, 2020 Pre & Post Diagnosis Operation Date: 06/26/20 18:00 Pre-Op Diagnosis: Right Gluteal Abscess Post-Op Diagnosis: Right Gluteal Abscess I identified the patient and participated in the time-out.: Yes Procedure Operation Date: 06/26/20 18:00 Actual Procedures p Incision and Drainage Right Gluteal Abscess(Right) - Fran Orlando DO Surgeon Fran Orlando DO Soda Dry House Operator None Estimated Blood Loss 5 Findings See Below Large abscess cavity with copious amount of purulent fluid expressed Fluids 1000mL Specimens Specimen Description: Culture #1: Right Gluteal Abscess Fluid Drains Other (saline soaked large kerlix) Anesthesia Type General Complications none Disposition Disposition: Recovery Room
--- NOTE | 2020-06-26 19:02 | Operative Report ---
PG Post Operative Report Pre & Post Diagnosis Operation Date: 06/26/20 18:00 Pre-Op Diagnosis: Right Gluteal Abscess Post-Op Diagnosis: Right Gluteal Abscess I identified the patient and participated in the time-out.: Yes Procedure Operation Date: 06/26/20 18:00 Actual Procedures p Incision and Drainage Right Gluteal Abscess(Right) - Fran Orlando DO Surgeon Fran Orlando DO Netting Weaver None Estimated Blood Loss 5 Findings See Below Large abscess cavity with copious amount of purulent fluid Fluids 1000mL Specimens Right gluteal abscess fluid for culture Drains None Anesthesia Type General Complications none Disposition Disposition: Recovery Room Indications 39 yo male with right gluteal abscess Description of Procedure The patient was brought to the OR and placed in the supine position. At this time he underwent General endotracheal anesthesia without issue. He was given appropriate pre-operative antibiotics. He was then placed in the left lateral decubitus position. The right buttock was prepped and draped in the usual sterile fashion. A timeout was called. The procedure was verified as Incision and drainage of right gluteal abscess. Surgical, anesthesia and nursing teams agreed and the procedure was begun. After injection of 0.25% Marcaine with epinephrine, an incision was made directly over the most fluctuant area of abscess using a #11 blade scalpel. Purulent fluid was encountered. Wide drainage was ensured. All loculations were broken up bluntly. At this time the incision was irrigated until clear. Hemostasis was achieved using electrocautery. Hemostasis was complete. The incision was packed with a wet to dry Kerlix. Sterile dressing was applied. The patient was awakened from anesthesia and taking to PACU having remained stable throughout the entire case. All needle and sponge counts correct x 2. I attest to the content of the Intraoperative Record and any orders documented therein. Any exceptions are noted below.
--- NOTE | 2020-06-26 19:40 | Anesthesiology Progress Note ---
Date of Service June 26, 2020 Anesthesia Post Procedure Vital Signs Vital Signs: Temp Pulse Pulse Resp BP BP Pulse Ox 06/26/20 19:30 82 18 118/51 L 97 06/26/20 19:20 85 24 112/53 L 97 06/26/20 19:10 99 H 18 133/99 97 06/26/20 19:00 36.6 C 90 12 98/62 L 98 06/26/20 16:00 85 18 128/77 98 06/26/20 14:25 37.4 C 06/26/20 13:59 128 H 20 108/54 L 99 Pain Intensity Rectal: Pain Intensity: 0 Transfer of Care Handoff Completed per policy Notes Mental Status: alert / awake / arousable Patient Amnestic to Procedure: Yes Nausea / Vomiting: adequately controlled Pain: adequately controlled Airway Patency, RR, SpO2: stable & adequate BP & HR: stable & adequate Hydration State: stable & adequate Anesthetic Complications: no major complications apparent
[2020-06-26] MEDS: LACTATED RINGER'S 1,000 ML IV SCH (20:40)
[2020-06-26] MEDS: PIPERACILLIN/TAZOBACTAM 3.375 GM in DEXTROSE 5% 100 ML IV SCH (21:38)
[2020-06-27] MEDS: PIPERACILLIN/TAZOBACTAM 3.375 GM in DEXTROSE 5% 100 ML IV SCH (05:08)
[2020-06-27] MEDS: LACTATED RINGER'S 1,000 ML IV SCH (06:13)
--- NOTE | 2020-06-27 06:23 | Surgery Progress Note ---
Date of Service June 27, 2020 Assessment & Plan (1) Abscess of buttock, right: POD#1 I & D -continue wound packing -blood cultures as well as wound culture/gram stain pending -continue abx--zosyn (day #2)--will chelsi abx. based on micro data once available Admission and Anticipated Discharge Date Admission Date: June 26, 2020 Supervising Physician Co-Signing Physician Notes I personally saw and evaluated the patient with Bello De Los Santos PA-C and agree with the assessment and plan. 39 yo male POD#1 I&D R buttock abscess -Dressing changed at bedside, no purulence -Will continue Zosyn until discharge -Will set up Home health for help with dressing changes -Augmentin x 10 days after discharge -Have him f/u in 2 weeks for wound check -D/C home today Subjective Pt. denies fevers, shakes, chills. Buttock pain present at time of admission has improved. No N/V. Physical Exam Physical Exam: dressing not changed--will perform with attending physician later today Constitutional: well developed and well nourished; no acute distress Neck: trachea midline Respiratory: normal respiratory effort; no respiratory distress and no labored breathing Results & Data ([facility]) Vital Signs (Past 12 Hours) Vital Signs Temp Pulse Pulse Resp BP BP Pulse Ox 06/27/20 03:36 37.1 C 88 14 127/74 95 06/26/20 23:59 36.8 C 91 H 16 122/74 93 06/26/20 22:49 36.8 C 89 16 125/76 94 06/26/20 21:37 36.7 C 92 H 16 118/75 97 06/26/20 21:11 36.9 C 77 16 112/70 100 06/26/20 20:40 36.9 C 84 18 118/72 98 06/26/20 20:15 36.6 C 84 18 125/55 L 99 06/26/20 20:01 36.6 C 81 19 125/55 L 97 06/26/20 19:50 36.6 C 83 20 115/56 L 97 06/26/20 19:40 36.6 C 83 19 108/51 L 96 06/26/20 19:30 82 18 118/51 L 97 06/26/20 19:20 85 24 112/53 L 97 06/26/20 19:10 99 H 18 133/99 97 06/26/20 19:00 36.6 C 90 12 98/62 L 98 PG Care Time/CCT Total # of Minutes Spent Total Time Spent with Patient: Total time spent is greater than 50% in coordination of care (as documented) at patient's floor/unit and/or counseling patient: Coding Level of Care Code None Diagnoses Abscess of buttock, right L02.31
[2020-06-27 06:56] LABS: Hematocrit (blood only) 38.9 % (42-52); Mean Corpuscular Hemoglobin 26.1 pg (25-34); Mean Corpuscular Hgb Conc 33.4 g/dL (32-36); Mean Platelet Volume 9.4 fL (7.4-10.4); Platelet Count 471 K/uL (130-400); RDW Coefficient of Variation 16.1 % (11.5-14.5); RDW Standard Deviation 45.9 fL (36.4-46.3); Red Blood Count 4.99 M/uL (4.7-6.1); White Blood Count 16.66 K/uL (4.8-10.8)
[2020-06-27 07:36] LABS: ALC (manual) 1.88 K/uL (1.2-3.4); ANC (manual) 11.16 K/uL (1.4-6.5); Eosinophils # (manual) 0.28 K/uL (0-0.5); Eosinophils % (manual) 1.7 %; Lymphocytes # (manual) 1.88 K/uL (1.2-3.4); Lymphocytes % (manual) 11.3 %; Metamyelocytes # (manual) 1.17 K/uL (0-0); Monocytes # (manual) 0.43 K/uL (0.11-0.59); Monocytes % (manual) 2.6 %; Myelocytes # (manual) 1.73 K/uL (0-0); Myelocytes % (manual) 10.4 %; Neutrophils # (manual) 11.16 K/uL (1.4-6.5); Target Cells 2+
[2020-06-27 08:16] VITALS: TEMP 98.6; O2SAT 96
[2020-06-27 11:51] VITALS: BP 127/74; PULSE 77
--- NOTE | 2020-06-27 12:51 | Electrocardiogram Report ---
Test Reason : Blood Pressure : / mmHG Vent. Rate : 107 BPM Atrial Rate : 107 BPM P-R Int : 122 ms QRS Dur : 082 ms QT Int : 306 ms P-R-T Axes : 078 092 054 degrees QTc Int : 408 ms Sinus tachycardia Biatrial enlargement Rightward axis RSR' or QR pattern in V1 suggests right ventricular conduction delay Abnormal ECG When compared with ECG of 25-OCT-2005 18:33, Vent. rate has increased BY 41 BPM Confirmed by Yash Mills ([id number]) on 06/27/2020 12:51:15 PM Referred By: REFERRED SELF Confirmed By:Yash Mills
--- NOTE | 2020-06-29 13:26 | Discharge Summary ---
Date of Service June 29, 2020 Admission HPI Per Admitting Provider This is an otherwise healthy 39 yo male who presents with right buttock pain x 1 week. He states he was injecting steroids into the area one week ago and then slowly developed swelling and sharp right buttock pain that worsened each day. No relieving factors. No fevers or chills. No N/V. No drainage. Principal Diagnosis Right buttock abscess Discharge Exam Constitutional WD/WN, vitals as above Skin Buttock wound packing changed, no purulence, no erythema Discharge Data Allergies Allergy/AdvReac Type Severity Reaction Status Date / Time No Known Allergies Allergy Verified 06/26/20 15:28 [id number] Allergy Unknown Unknown Uncoded 06/26/20 15:28 Consultations 06/26/20 17:07 Consult General Surgery Stat 06/27/20 09:25 Consult Case Management - Discharge Planning Routine Procedures Performed Operation Date: 06/26/20 18:00 Actual Procedures p Incision and Drainage Right Gluteal Abscess(Right) - Fran Orlando DO Ordered Studies 06/26/20 15:09 CT abd pelvis IV con only Stat CT angio chest PE protocol Stat Hospital Course (1) Abscess of buttock, right: Patient was admitted and taken to OR for I&D of his right buttock abscess which he tolerated well. Post-operatively he was afebrile, tolerating a diet and his wound packing was changed and no purulence was noted. He was kept on ABX and home health was in the process of being set up for him to help with dressing changes when he left prior to this being set up. Total Time Total Time Spent Total Time Spent (In Minutes): 20 Discharge Plan Discharge Items Patient Disposition: Home - Self-Care Reason For Visit: RIGHT BUTTOCK ABSCESS Discharge Diagnosis: Right Buttock Abscess Condition on Discharge: Good Activity: Resume your previous activity Bathing Comment: Ok to shower. No tub baths Driving/Machine Use: No limitations Non-emergency contact: Surgeon Call non-emergency contact if: you have any medication questions Follow-up/Referrals: Fran Orlando DO [Physician] - (Call office for an appointment in 2 weeks.) PCP,NO [Primary Care Provider] - Diet: Regular Addtl Attending Provider Instructions: Change dressing to wound once daily with a wet to dry dressing soaked in saline. Pending Studies at Discharge: No Stand-Alone Forms: [facility], Smoking Cessation Medications and DC Order Prescriptions: New acetaminophen 325 mg capsule 650 mg PO Q6H Qty: 60 RF: 0 ibuprofen 200 mg capsule 400 mg PO Q6H PRN (Reason: pain) Qty: 60 RF: 0 amoxicillin-pot clavulanate [Augmentin] 875-125 mg tablet 1 tab PO Q12H Qty: 20 RF: 0 No Action No Known Home Medications RF: 0 Discharge Orders: Discharge Order (Routine); Ordered 06/27/20 Ordered By: Bello De Los Santos Admission Data Admit Date/Time: 06/26/20 17:45 Attending Provider: Fran Orlando Admit Provider: Fran Orlando Primary Care Provider: PCP,NO Other Providers: Fran Orlando Other Interventions: Discharge Summary Assessment (RN) Last Done: 06/27/20 11:50 Coding Level of Care Code D/C Day Management <30 mins Diagnoses Abscess of buttock, right L02.31
== END 2020-06-27 11:52 | disposition home or self-care (01) ==
LOC: ED 13:55 → 3N 17:41 → OR 17:41